=== PATIENT | male | born 1995 ===

== ENCOUNTER 2018-01-06 09:26 | Emergency (ER) | payer OTHER | END 2018-01-06 12:17 | LOC: H.ER 09:26 | DX: F32.2 Major depressive disorder, single episode, severe without psychotic features (principal) ==

== ENCOUNTER 2018-01-06 09:26 | Inpatient (IN) | payer OTHER ==
[2018-01-06 10:05] LABS: BASO # 0.1 K/uL (0.0-0.2); BASO % 0.8 % (0.0-2.0); EOS % 0.3 % (0.0-4.0); HEMOGLOBIN 15.3 g/dL (12.0-18.0); LYMPH # 1.5 K/uL (1.0-4.3); LYMPH % 22.4 % (20.0-40.0); MEAN CELL VOLUME 91.7 fl (80.0-94.0); MEAN CORPUSCULAR HEMOGLOBIN 31.7 pg (27.0-31.0); MEAN CORPUSCULAR HGB CONC 34.5 g/dL (33.0-37.0); MONO # 0.6 K/uL (0.0-0.8); NEUT # 4.5 K/uL (1.8-7.0); NEUT % 67.5 % (50.0-75.0); NRBC % 0.2 % (0.0-0.0); RBC 4.84 Mil/uL (4.40-5.90); RED CELL DISTRIBUTION WIDTH 13.5 % (11.5-14.5); WHITE BLOOD COUNT 6.6 K/uL (4.8-10.8)
--- NOTE | 2018-01-06 10:18 | ED PDOC ---
HPI: Psych/Substance Abuse Time Seen by Provider: 01/06/18 09:32 Chief Complaint (Nursing): Psychiatric Evaluation Chief Complaint (Provider): Psychiatric Evaluation History Per: Patient History/Exam Limitations: no limitations Onset/Duration Of Symptoms: Hrs Current Symptoms Are (Timing): Still Present Suicide/Self Injury Attempted (Context): Cut Wrists (and neck ) Modifying Factor(s): Alcohol, Marijuana, Cocaine Additional Complaint(s): 22 year old male brought to the ED complaining of depression, onset last night. Patient states he was drinking alcohol, using cocaine and marijuana when he stated feeling sad and depressed last night. Patient stated making superficial cuts to his bilateral forearms and neck. 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 pt is utd with tetanus. PMD: None Provided Past Medical History Reviewed: Historical Data, Nursing Documentation, Vital Signs - Medical History PMH: No Chronic Diseases - Surgical History Surgical History: No Surg Hx - Family History Family History: States: Unknown Family Hx - Social History Current smoker - smoking cessation education provided: No Alcohol: Social Drugs: Cannabis, Cocaine - Immunization History Hx Tetanus Toxoid Vaccination: Yes - Home Medications Home Medications: Ambulatory Orders Medication Instructions Recorded No Known Home Med 01/06/18 - Allergies Allergies/Adverse Reactions: Allergies Allergy/AdvReac Type Severity Reaction Status Date / Time No Known Allergies Allergy Verified 01/06/18 09:36 Review of Systems ROS Statement: Except As Marked, All Systems Reviewed And Found Negative Skin: Positive for: Other (cuts to forearms and neck) Psych: Positive for: Depression, Suicidal ideation Physical Exam - Reviewed Nursing Documentation Reviewed: Yes Vital Signs Reviewed: Yes - Physical Exam Appears: Positive for: Non-toxic, No Acute Distress Head Exam: Positive for: ATRAUMATIC, NORMOCEPHALIC Skin: Positive for: Warm, Dry Eye Exam: Positive for: Normal appearance ENT: Positive for: Normal ENT Inspection Neck: Positive for: Normal (superficial grazes on neck; not open, not bleeding, no hematoma), Supple Cardiovascular/Chest: Positive for: Regular Rate, Rhythm Respiratory: Positive for: Normal Breath Sounds Gastrointestinal/Abdominal: Positive for: Normal Exam, Soft Back: Positive for: Normal Inspection Extremity: Positive for: Normal ROM, Other (superficial lacerations to bilateral forearms, with exception of one laceration on the R forearm, the wound is still pretty superficial but skin is gaping and needs closure. area irrigated with sterile water prior to procedure. (see procedure note) time out performed as well. neurovascular intact post procedure. ) Neurologic/Psych: Positive for: Alert, hydrotreater operator II-XII (intact), Oriented (x3) - Laboratory Results Result Diagrams: 01/06/18 09:52 01/06/18 09:52 Medical Decision Making Medical Decision Making: Time: 951 Plan: Depression, alcohol ingestion rule out electrolyte abnormalities -- EKG -- Acetaminophen -- Alcohol Serum -- BMP -- Urine Drug Screen -- Salicylate -- Crisis Evaluation -- CBC with differentials -- Nursing Communication -- Urinalysis Time: 1223 pt cleared for psych evaluation. -- Dr. Gutierrez would like to admit patient for depression. Scribe Attestation: Documented by Keyla Cortez, acting as a scribe for Dr. Kirstie Lamb MD Provider Scribe Attestation: All medical record entries made by the Scribe were at my direction and personally dictated by me. I have reviewed the chart and agree that the record accurately reflects my personal performance of the history, physical exam, medical decision making, and the department course for this patient. I have also personally directed, reviewed, and agree with the discharge instructions and disposition. Procedures - Laceration/Wound Repair Right Lateral Arm Wound Length (cm): 2.54 Wound's Depth, Shape: linear Wound Explored: No active bleeding; slight oozing blood; gaped open Irrigated w/ Saline (ccs): 3 (throughouly irrigated and cleaned ) Anesthesia: 1% Lidocaine (3 ml) Suture Size/Type: 3:0, nylon Number of Sutures: 3 Wound Complexity: Simple Sterile Dressing Applied?: Yes Splint Applied?: No Disposition - Clinical Impression Clinical Impression: Depression, Laceration - Patient ED Disposition Is Patient to be Admitted: Yes Counseled Patient/Family Regarding: Diagnosis - Disposition Disposition Time: 11:00 Condition: STABLE
[2018-01-06 10:19] LABS: BLOOD UREA NITROGEN 10 mg/dl (9-20); CALCIUM 8.9 mg/dL (8.4-10.2); GFR AFRICAN-AMERICAN > 60; GFR NON-AFRICAN AMERICAN > 60
[2018-01-06 10:20] LABS: ACETAMINOPHEN < 10.0 ug/ml (10.0-30.0); SALICYLATE < 1.0 mg/dl
[2018-01-06] MEDS ORDERED: Lidocaine 1% Inj (20ml) ONE (10:21)
[2018-01-06 10:30] LABS: URINE BILIRUBIN NEGATIVE (NEGATIVE); URINE BLOOD NEGATIVE (NEGATIVE); URINE CLARITY CLEAR (Clear); URINE COLOR YELLOW (YELLOW); URINE GLUCOSE (UA) NEG (Normal); URINE LEUKOCYTE ESTERASE NEG Leu/uL (Negative); URINE PROTEIN NEGATIVE (NEGATIVE); URINE UROBILINOGEN 0.2-1.0 mg/dL (0.2-1.0)
[2018-01-06 10:47] LABS: BARBITURATES, UR NEGATIVE (NEGATIVE); BENZODIAZEPINES, UR NEGATIVE (NEGATIVE); OPIATES, UR NEGATIVE (NEGATIVE); PHENCYCLIDINE, UR NEGATIVE (NEGATIVE)
[2018-01-06 13:30] VITALS: O2SAT 100
[2018-01-06] MEDS ORDERED: Lidocaine 1% Inj (20ml) IJ ONE (14:04)
[2018-01-06] MEDS ORDERED: Magnesium Hydroxide Susp 30 ml UD PO PRN (14:51)
[2018-01-06] MEDS ORDERED: DiphenhydrAMINE 50 mg/ml Inj IM PRN (14:51)
[2018-01-06] MEDS ORDERED: Alum-Mag Hydrox-Simethicone Susp (30 mL) PO PRN (14:51)
--- NOTE | 2018-01-06 15:11 | PCM.BM ---
Treatment Plan Problems - Problems identified on initial assessmt Problem 1 Date Initiated: 01/06/18 Assessment reference: NA Status: Active Hopelessness/Helplessness Assessment reference: NA Status: Active - Milieu Protocol Maintain good personal hygiene: daily Encourage regular showers, daily Remind patient to perform daily oral care, daily Assist patient to perform ADL's Conduct patient checks and document Observation sheet: Q15 minutes Maintain personal safety: every shift Educate patient to report safety concerns to staff, every shift Monitor environment for contraband/sharps Medication safety: Monitor for expected outcome, potential side effects: every shift, Assess barriers to learning: every shift, Assess readiness for medication education: every shift
[2018-01-07 07:00] LABS: T4 4.51 ug/dl (5.5-11.0)
--- NOTE | 2018-01-07 08:43 | CARD ---
APPROVED REPORT EKG Measurement Heart [id number] <Conclusion> Normal sinus rhythm Normal ECG
--- NOTE | 2018-01-07 12:36 | PCM.PSYCH ---
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, since he came back he has been feeling down and lonely also remorseful about breaking up with his girlfriend, who left him about 11 months ago after he cheated on her, pt reported that for the last two weeks, he started thinking that he has no purpose for living as he always ruins and looses everything good he has, pt went to bathroom , used pocket knife cutting both wrists and also cutting his neck superficially, pt stated that he has been contemplating suicide for a long time and that night he felt he could not handle the emotional pain and wanted to end it all pt reported has been depressed even in [facility] and contemplated suicide using a caryn but did not want to make a seen and hurt his family pt reported poor sleep with early insomnia, decreased appetite low energy, episodes of impulsivety , anger denied psychotic symptoms, episodes of binging on alcohol , denied other substance use , denied any current psychotic symptoms currently having passive suicidal ideation without active plan on the unit , denied perceptual disturbances Current Medications: Active Medications Generic Name Dose Route Start Last Admin Trade Name Freq PRN Reason Stop Dose Admin Acetaminophen 650 mg 01/06/18 14:56 Tylenol 325mg Tab PO Q4 PRN Pain, moderate (4-7) Al Hydrox/Mg Hydrox/Simethicone 30 ml 01/06/18 14:51 Maalox Plus 30 Ml PO Q4 PRN Dyspepsia Aripiprazole 5 mg 01/07/18 12:15 Abilify PO DAILY ZENAIDA Diphenhydramine HCl 50 mg 01/06/18 14:51 Benadryl IM Q6 PRN Extrapyramidal S/S Unable PO Haloperidol 5 mg 01/06/18 14:51 Haldol PO Q4 PRN Agitation Haloperidol Lactate 5 mg 01/06/18 14:51 Haldol IM Q4 PRN Agitation, Unable to Take PO Lorazepam 2 mg 01/06/18 14:51 Ativan IM Q4 PRN Anxiety/Agitation,Unable PO Lorazepam 2 mg 01/06/18 14:54 Ativan PO Q4 PRN Agitation Lorazepam 1 mg 01/06/18 17:00 01/07/18 09:25 Ativan PO 1 mg TID ZENAIDA Administration Magnesium Hydroxide 30 ml 01/06/18 14:51 Milk Of Magnesia PO HS PRN Constipation Trazodone HCl 50 mg 01/06/18 14:58 Desyrel PO HS PRN Insomnia Past Psychiatric History - Past Psychiatric History Explanation of prior treatment: pt reported depression and anxiety since childhood due to witnessing parental conflicts , and parents divorce received counselling during high school years for oppositional defiant behavior reported episodes of impulsivity alternating with depression and anhedonia History of ETOH/Drug Use: alcohol abuse since age 16, binging pattern Pertinent Medical Hx (Current Medical&Sleep Prob, Allergies): Allergies Allergy/AdvReac Type Severity Reaction Status Date / Time No Known Allergies Allergy Verified 01/06/18 09:36 No Known Home Med 01/06/18 Mental Status Examination - Personal Presentation Personal Presentation: Looks younger than stated age - Affect Affect: Constricted, Depressed - Reliability in Providing Information Reliability in Providing Information: Fair - Speech Speech: Relevant - Mood Mood: Depressed, Anxious - Formal Thought Process Formal Thought Process: Circumstantial - Hallucinations/Delusions Additional comments: pt denied perceptual disturbances, non elicited - Obsessions/Compulsions Obsessions: No Compulsions: No - Cognitive Functions Orientation: Person, Place Sensorium: Alert Attention/Concentration: Attentive - Risk Risk: Suicidal, Withdrawal, Diminished functioning - Strength & Assets Inventory Strength & Assets Inventory: Family support, Employment history - Limitations Additional comments: recent break up with girl friend DSM 5 DX - DSM 5 DSM 5 Diagnosis: major depression severe without psychotic features rule out bipolar II disorder depressed alcohol use disorder - Recommended/Plan of Treatment Treatment Recommendations and Plan of Treatment: ativan 1mg tid/ monitor pt for symptoms and signs of alcohol withdrawal abilify 5mg day for depression and poor impulse control monitor pt for psychopharmacological effects and side effect profile CBT group and supportive therapy Prognosis: guarded
[2018-01-07] MEDS ORDERED: Bacitracin Opht OINT 3.5GM OD SCH (17:00)
--- NOTE | 2018-01-07 17:56 | CP.PCM.CON ---
<CarmelotrungJaylon martines - Last Filed: 01/07/18 17:56> Past Patient History - Past Social History Alcohol: Social Drugs: Cannabis, Cocaine - CARDIAC Hx Cardiac Disorders: No - PULMONARY Hx Respiratory Disorders: No - NEUROLOGICAL Hx Neurological Disorder: No - HEENT Hx HEENT Problems: No - RENAL Hx Chronic Kidney Disease: No - ENDOCRINE/METABOLIC Hx Endocrine Disorders: No - HEMATOLOGICAL/ONCOLOGICAL Hx Blood Disorders: No - INTEGUMENTARY Hx Dermatological Problems: No - MUSCULOSKELETAL/RHEUMATOLOGICAL Hx Musculoskeletal Disorders: No - GASTROINTESTINAL Hx Gastrointestinal Disorders: No - GENITOURINARY/GYNECOLOGICAL Hx Genitourinary Disorders: No - PSYCHIATRIC Hx Physical Abuse: No Hx Sexual Abuse: No Hx Substance Use: Yes (has used drugs in the past, no drugs for last 2 months) - SURGICAL HISTORY Hx Surgeries: No - ANESTHESIA Hx Anesthesia: No Meds Allergies/Adverse Reactions: Allergies Allergy/AdvReac Type Severity Reaction Status Date / Time No Known Allergies Allergy Verified 01/06/18 09:36 - Medications Medications: Current Medications Acetaminophen (Tylenol 325mg Tab) 650 mg PO Q4 PRN PRN Reason: Pain, moderate (4-7) Al Hydrox/Mg Hydrox/Simethicone (Maalox Plus 30 Ml) 30 ml PO Q4 PRN PRN Reason: Dyspepsia Aripiprazole (Abilify) 5 mg PO DAILY [facility] Last Admin: 01/07/18 15:03 Dose: 5 mg Bacitracin (Bacitracin Opht Oint) 1 applic OD Q4 [facility] Diphenhydramine HCl (Benadryl) 50 mg IM Q6 PRN PRN Reason: Extrapyramidal S/S Unable PO Haloperidol (Haldol) 5 mg PO Q4 PRN PRN Reason: Agitation Haloperidol Lactate (Haldol) 5 mg IM Q4 PRN PRN Reason: Agitation, Unable to Take PO Lorazepam (Ativan) 2 mg IM Q4 PRN PRN Reason: Anxiety/Agitation,Unable PO Lorazepam (Ativan) 2 mg PO Q4 PRN PRN Reason: Agitation Lorazepam (Ativan) 1 mg PO TID [facility] Last Admin: 01/07/18 15:03 Dose: 1 mg Magnesium Hydroxide (Milk Of Magnesia) 30 ml PO HS PRN PRN Reason: Constipation Trazodone HCl (Desyrel) 50 mg PO HS PRN PRN Reason: Insomnia Results - Vital Signs Recent Vital Signs: Last Vital Signs Temp 98.1 F 01/06/18 17:22 Pulse 72 01/06/18 22:00 Resp 17 01/06/18 17:22 BP 154/75 H 01/06/18 22:00 Pulse Ox 100 01/06/18 13:29 - Labs Result Diagrams: 01/06/18 09:52 01/06/18 09:52 Labs: Laboratory Results - last 24 hr 01/07/18 01/07/18 05:45 05:45 Hemoglobin A1c 5.3 Triglycerides 76 Cholesterol 120 LDL Cholesterol Direct 59 HDL Cholesterol 41 Thyroxine (T4) 4.51 L TSH 3rd Generation 0.76 <Vaibhav Hayes - Last Filed: 01/07/18 20:33> History of Present Illness - History of Present Illness History of Present Illness: 22 y/o male with no PMH brought to ER by his sister for crisis evaluation . 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 He states that was drinking yesterday and suddenly felt sad , depressed and decided to cut his wrists , neck and abdomen with a pocket knife ( all shallow cuts ). Patient denies any prior history of depression or suicidal attempts. admits to passive suicidal thoughts in the past. At present feeling well, denies any suicidal ideation. Denies any chest pain SOB, palpitations, PND , orthopnea , urinary symptoms or changes in bowel movements. Complains of bilateral inguinal area rash . Allergies ; NKDA PMH ; None Medications : none surgery ; None family history ; Not contributory Social history ; lives with mother in [place] , smokes less 1 cig / day , ETOH abuse weekly 4 large heavy liquor, denies drug abuse but has tried LSD, marijuana, cocaine, active , just returned from 4 month active duty in [facility] ROS ; 14 point review of system negative except above Review of Systems - Review of Systems All systems: reviewed and no additional remarkable complaints except Past Patient History - Infectious Disease Hx of Infectious Diseases: None - Tetanus Immunizations Tetanus Immunization: Up to Date - Past Medical History & Family History Past Medical History?: No Past Family History: Reviewed and not pertinent - Past Social History Smoking Status: Current Some Days Smoker Chewing Tobacco Use: No Cigar Use: No Alcohol: < 2 Drinks/Day Drugs: Cannabis, Cocaine Meds - Medications Medications: Current Medications Acetaminophen (Tylenol 325mg Tab) 650 mg PO Q4 PRN PRN Reason: Pain, moderate (4-7) Al Hydrox/Mg Hydrox/Simethicone (Maalox Plus 30 Ml) 30 ml PO Q4 PRN PRN Reason: Dyspepsia Aripiprazole (Abilify) 5 mg PO DAILY [facility] Last Admin: 01/07/18 15:03 Dose: 5 mg Bacitracin (Bacitracin Opht Oint) 1 applic OD Q4 [facility] Diphenhydramine HCl (Benadryl) 50 mg IM Q6 PRN PRN Reason: Extrapyramidal S/S Unable PO Haloperidol (Haldol) 5 mg PO Q4 PRN PRN Reason: Agitation Haloperidol Lactate (Haldol) 5 mg IM Q4 PRN PRN Reason: Agitation, Unable to Take PO Lorazepam (Ativan) 2 mg IM Q4 PRN PRN Reason: Anxiety/Agitation,Unable PO Lorazepam (Ativan) 2 mg PO Q4 PRN PRN Reason: Agitation Lorazepam (Ativan) 1 mg PO TID [facility] Last Admin: 01/07/18 19:15 Dose: 1 mg Magnesium Hydroxide (Milk Of Magnesia) 30 ml PO HS PRN PRN Reason: Constipation Trazodone HCl (Desyrel) 50 mg PO HS PRN PRN Reason: Insomnia Physical Exam - Constitutional Appears: Non-toxic, No Acute Distress - Head Exam Head Exam: ATRAUMATIC, NORMAL INSPECTION, NORMOCEPHALIC - Eye Exam Eye Exam: EOMI, Normal appearance, PERRL Pupil Exam: NORMAL ACCOMODATION - ENT Exam ENT Exam: Mucous Membranes Moist, Normal Exam - Neck Exam Neck exam: Positive for: Full Rom, Normal Inspection - Respiratory Exam Respiratory Exam: Clear to Auscultation Bilateral, NORMAL BREATHING PATTERN. absent: Rales, Rhonchi, Wheezes - Cardiovascular Exam Cardiovascular Exam: REGULAR RHYTHM, RRR, +S1, +S2. absent: JVD - GI/Abdominal Exam GI & Abdominal Exam: Normal Bowel Sounds, Soft. absent: Tenderness - Rectal Exam Rectal Exam: Deferred - Extremities Exam Extremities exam: Positive for: normal capillary refill, normal inspection, pedal pulses present. Negative for: calf tenderness, pedal edema - Back Exam Back exam: NORMAL INSPECTION - Neurological Exam Neurological exam: Alert, CN II-XII Intact, Oriented x3, Reflexes Normal - Psychiatric Exam Psychiatric exam: Normal Affect - Skin Skin Exam: Dry, Normal Color, Warm Additional comments: multiple shallow cuts to bilateral wrists , right side of the neck and 2 small cuts to left lower abdomen bilateral inguinal area rash Results - Vital Signs Recent Vital Signs: Last Vital Signs Temp 98.1 F 01/06/18 17:22 Pulse 72 01/06/18 22:00 Resp 17 01/06/18 17:22 BP 154/75 H 01/06/18 22:00 Pulse Ox 100 01/06/18 13:29 - Labs Result Diagrams: 01/06/18 09:52 01/06/18 09:52 Labs: Laboratory Results - last 24 hr 01/07/18 01/07/18 01/07/18 05:45 05:45 05:45 Hemoglobin A1c 5.3 Triglycerides 76 Cholesterol 120 LDL Cholesterol Direct 59 HDL Cholesterol 41 Thyroxine (T4) 4.51 L TSH 3rd Generation 0.76 RPR Nonreactive Assessment & Plan - Assessment and Plan (Free Text) Assessment: 22 y/o male with no PMH brought to ER by his sister for crisis evaluation . Patient has just recently returned home after being deployed for 4 months in [place] . He states that was drinking yesterday and suddenly felt sad , depressed and decided to cut his wrists , neck and abdomen with a pocket knife ( all shallow cuts ). Patient denies any prior history of depression or suicidal attempts. admits to passive suicidal thoughts in the past. At present feeling well, denies any suicidal ideation. Denies any chest pain SOB, palpitations, PND , orthopnea , urinary symptoms or changes in bowel movements. Complains of bilateral inguinal area rash . 1. Depression management as per psych 2.Polysubstance abuse including ETOH psychotherapy management of depression 3. Tinea cruris start clotrimazole topical
[2018-01-08] MEDS: Bacitracin OINT 15GM TOP SCH ×2 (09:49→18:36)
--- NOTE | 2018-01-08 15:28 | PCM.PYCHPN ---
Psychiatric Progress Note - Psychiatric Progress Note Patient seen today, length of contact: pt evaluated discussed with team chart reviewed Patient Chief Complaint: I have been depressed for a long time Problems Identified/Issues Discussed: pt seen with treatment team, presenting with depressed mood and affect, low energy and low motivation, reported multiple incidences in the past he considered ending his life but this time he intended to commit suicide as he felt he has no hope in the future CBT provided ,discussing negative automatic thoughts and possible alternatives discussed with pt need to comply with therapy and medications on discharge discussed gradually increasing abilify , pt denied active suicidal plan on the unit denied homicidal ideations Medical Problems: pt reported depression and anxiety since childhood due to witnessing parental conflicts , and parents divorce received counselling during high school years for oppositional defiant behavior reported episodes of impulsivity alternating with depression and anhedonia DSM 5 Symptoms Update: major depression rule out bipolar disorder depressed alcohol use disorder Medication Change: Yes (increase abilify) Medical Record Reviewed: Yes Mental Status Examination - Cognitive Function Orientation: Person, Place Attention: WNL Concentration: WNL Association: WNL Fund of Knowledge: WNL Decription of patient's judgement and insights: partial insight poor impulse control - Mood Mood: Depressed, Anxious - Affect Affect: Constricted, Depressed - Speech Speech: Soft - Formal Thought Process Formal Thought Process: Circumstantial Psychotic Thoughts and Behaviors: pt denied perceptual disturbances, non elicited - Suicidal Ideation Suicidal Ideation: No - Homicidal Ideation Homicidal Ideation: No Goal/Treatment Plan - Goal/Treatment Plan Need for Continued Stay: Remain at risks for inpatient hospitalization, Severe depression anxiety, Discharge may exacerbated symptoms Progress Toward Problem(s) and Goals/Treatment Plan: increase abilify gradually for depression and poor impulse control monitor pt for psychopharmacological effects and side effect profile CBT group and supportive therapy
[2018-01-09] MEDS: Bacitracin OINT 15GM TOP SCH ×3 (11:57→17:09)
--- NOTE | 2018-01-09 16:16 | PCM.PYCHPN ---
Psychiatric Progress Note - Psychiatric Progress Note Patient seen today, length of contact: pt evaluated discussed with team chart reviewed Patient Chief Complaint: I think my parents' seperation was the hardest thing on me Problems Identified/Issues Discussed: pt on evaluation, less guarded, able to open up in refernce to his feelings , stated remembering being depressed and anxious since his parents' separation , always feeling remorseful for not having an intact family and that makes him always clark into relations, pt also reported his tendency to loose his temper and frequent episodes of irritability and impulsive behavior discussed with pt importance of being in therapy on discharge, also discussed gradual increase in dose of abilify, no reported current side effects Medical Problems: pt reported depression and anxiety since childhood due to witnessing parental conflicts , and parents divorce received counselling during high school years for oppositional defiant behavior reported episodes of impulsivity alternating with depression and anhedonia DSM 5 Symptoms Update: depression/ rule out bipolar II depressed Medication Change: Yes (increase abilify) Medical Record Reviewed: Yes Mental Status Examination - Cognitive Function Orientation: Person, Place Attention: WNL Concentration: WNL Association: WN Fund of Knowledge: WN Decription of patient's judgement and insights: partial insight poor impulse control - Mood Mood: Depressed, Anxious - Affect Affect: Constricted, Depressed - Speech Speech: Soft - Formal Thought Process Formal Thought Process: Circumstantial Psychotic Thoughts and Behaviors: pt denied perceptual disturbances, non elicited - Suicidal Ideation Suicidal Ideation: No - Homicidal Ideation Homicidal Ideation: No Goal/Treatment Plan - Goal/Treatment Plan Need for Continued Stay: Remain at risks for inpatient hospitalization, Severe depression anxiety, Discharge may exacerbated symptoms Progress Toward Problem(s) and Goals/Treatment Plan: increase abilify gradually for depression and poor impulse control monitor pt for psychopharmacological effects and side effect profile CBT group and supportive therapy
[2018-01-10] MEDS: Bacitracin OINT 15GM TOP SCH ×2 (09:24→17:45)
--- NOTE | 2018-01-10 13:03 | PCM.PYCHPN ---
Psychiatric Progress Note - Psychiatric Progress Note Patient seen today, length of contact: pt evaluated discussed with team chart reviewed Patient Chief Complaint: I am now trying to think what got me into this situation Problems Identified/Issues Discussed: pt on evaluation, cooperative , more interactive with staff and other patients, attending groups, pt able to verbalize some of the stressors that led to his current suicidal attempt, discussed with pt possible coping skills, need to continue with outpatient therapy , pt reported feeling calmer with abilify , no current reported side effects, discussed with pt the current diagnosis with possibility of Bipolar II versus depression, will continue with abilify 5mg daily pt denied any current suicidal or homicidal ideation Medical Problems: pt reported depression and anxiety since childhood due to witnessing parental conflicts , and parents divorce received counselling during high school years for oppositional defiant behavior reported episodes of impulsivity alternating with depression and anhedonia DSM 5 Symptoms Update: depression rule out bipolar II disorder Medication Change: No Medical Record Reviewed: Yes Mental Status Examination - Cognitive Function Orientation: Person, Place Attention: WNL Concentration: WNL Association: WNL Fund of Knowledge: WNL Decription of patient's judgement and insights: partial insight poor impulse control - Mood Mood: Depressed, Anxious - Affect Affect: Constricted, Depressed - Speech Speech: Soft - Formal Thought Process Formal Thought Process: Circumstantial Psychotic Thoughts and Behaviors: pt denied perceptual disturbances, non elicited - Suicidal Ideation Suicidal Ideation: No - Homicidal Ideation Homicidal Ideation: No Goal/Treatment Plan - Goal/Treatment Plan Need for Continued Stay: Remain at risks for inpatient hospitalization, Severe depression anxiety, Discharge may exacerbated symptoms Progress Toward Problem(s) and Goals/Treatment Plan: abilify 5mg for depression and poor impulse control monitor pt for psychopharmacological effects and side effect profile CBT group and supportive therapy
--- NOTE | 2018-01-11 09:00 | PCM.PYCHPN ---
Psychiatric Progress Note - Psychiatric Progress Note Patient seen today, length of contact: pt evaluated discussed with team chart reviewed Patient Chief Complaint: pt has remained very depressed still missing the girlfriend .pt is less impulsive with abilify and denies suicidal ideation. Medication Change: No Medical Record Reviewed: Yes Mental Status Examination - Cognitive Function Orientation: Person, Place Attention: WNL Concentration: WNL Association: WNL Fund of Knowledge: WNL - Mood Mood: Depressed, Anxious - Affect Affect: Constricted, Depressed - Speech Speech: Soft - Formal Thought Process Formal Thought Process: Circumstantial - Suicidal Ideation Suicidal Ideation: No - Homicidal Ideation Homicidal Ideation: No Goal/Treatment Plan - Goal/Treatment Plan Need for Continued Stay: Remain at risks for inpatient hospitalization, Severe depression anxiety, Discharge may exacerbated symptoms Progress Toward Problem(s) and Goals/Treatment Plan: will add zoloft 25 mg daily for depression and continue to titrate abilify as needed to stabilize the mood . D/c plans as per dr larkin
[2018-01-11] MEDS: Bacitracin OINT 15GM TOP SCH ×2 (09:27→19:08)
[2018-01-11 16:19] VITALS: RESP 18
[2018-01-12] MEDS: Bacitracin OINT 15GM TOP SCH ×2 (09:19→16:54)
[2018-01-12 16:53] VITALS: PULSE 73
[2018-01-13 09:09] VITALS: BP 127/59; TEMP 97.3
[2018-01-13] MEDS: Bacitracin OINT 15GM TOP SCH (09:14)
--- NOTE | 2018-01-13 12:57 | PCM.PYCHDC ---
Mental Status Examination - Mental Status Examination Orientation: Person, Place, Situation, Time Memory: Intact Mood: Neutral Affect: Broad Speech: Appropriate Attention: WNL Concentration: WNL Association: WNL Fund of Knowledge: WNL Formal Thought Process: No Impairment Description of patient's judgement and insight: partial insight poor impulse control Psychotic Thoughts and Behaviors: pt denied perceptual disturbances, non elicited Suicidal Ideation: No Current Homicidal Ideation?: No Discharge Summary - Discharge Note Reason for Hospitalization: pt is 22 ys old male , no previous formal psychiatric treatment, brought to the ER by sister after a suicidal attempt by cutting his wrist while intoxicated reportedly patient has been back from [facility] 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, since he came back he has been feeling down and lonely also remorseful about breaking up with his girlfriend, who left him about 11 months ago after he cheated on her, pt reported that for the last two weeks, he started thinking that he has no purpose for living as he always ruins and looses everything good he has, pt went to bathroom , used pocket knife cutting both wrists and also cutting his neck superficially, pt stated that he has been contemplating suicide for a long time and that night he felt he could not handle the emotional pain and wanted to end it all pt reported has been [facility] and contemplated suicide using a caryn but did not want to make a seen and hurt his family pt reported poor sleep with early insomnia, decreased appetite low energy, episodes of impulsivety , anger denied psychotic symptoms, episodes of binging on alcohol , denied other substance use , denied any current psychotic symptoms currently having passive suicidal ideation without active plan on the unit , denied perceptual disturbances Consultations:: List each consultation separately and include: 1. Reason for request. 2. Findings. 3. Follow-up Summary of Hospital Course include:: 1. Description of specific treatment plan utilized for patients during their course of treatmen. 2. Summarize the time- course for resolution of acute symptoms and/or regressed behaviors. 3. Describe issues identified and worked on during hospitalization. 4. Describe medication utilized. 5. Describe medical problems identified and treated. 6. Reassessment of suicide risk Summary of Hospital Course: pt on admission was started on abilify 2mg, it was utitrated to 5mg for depression and poor impulse control, zoloft 25mg for depression CBT and group therapy provided pt was also provided for motivational therapy for alcohol use pt was compliant with treatment attended groups, presented with brighter mood and affect, no reported side effects of the medications on discharge mental status was stable, pt denied any current suicidal or homicidal ideation , denied perceptual disturbances follow up was arranged by social worker clinical at [place] outpatient - Final Diagnosis (DSM 5) Condition upon Discharge: STABLE DSM 5: major depression single episode rule out Bipolar II depressed alcohol abuse Disposition: HOME/ ROUTINE Follow-up Treatment Plan: abilify 5mg for depression and poor impulse control monitor pt for psychopharmacological effects and side effect profile CBT group and supportive therapy Prescriptions/Medication Reconciliation: ARIPiprazole [Abilify] 5 mg PO DAILY 30 Days #30 tab Bacitracin OINT 1 applic TOP BID 7 Days #1 tube Clotrimazole 1% Cream [Lotrimin 1% CREAM] 1 applic TOP BID 7 Days #1 tube Sertraline [Zoloft] 25 mg PO DAILY 30 Days #30 tab traZODone [Desyrel] 50 mg PO HS PRN 30 Days #30 tab PRN Reason: Insomnia - Antipsychotic Medications Pt discharged on 2 or more routine antipsychotic medications: No
== END 2018-01-13 12:31 | disposition home or self-care (01) | DRG 885 ==
LOC: H.ER 09:26 → H.ERHOLD 12:18 → H.PSYCH 14:43
PROVIDERS: ADMIT Psychiatry & Neurology Psychiatry; ATTEND Psychiatry & Neurology Psychiatry
PROC: GZHZZZZ Group Psychotherapy (ICD-10-PCS; principal; 2018-01-07)
PROC: GZ51ZZZ Individual Psychotherapy, Behavioral (ICD-10-PCS; 2018-01-07)
DX: F32.2 Major depressive disorder, single episode, severe without psychotic features (principal); F41.9 Anxiety disorder, unspecified; F91.3 Oppositional defiant disorder; S61.511A Laceration without foreign body of right wrist, initial encounter; S61.512A Laceration without foreign body of left wrist, initial encounter; X78.9XXA Intentional self-harm by unspecified sharp object, initial encounter; F17.200 Nicotine dependence, unspecified, uncomplicated; R21 Rash and other nonspecific skin eruption; B35.6 Tinea cruris; F10.10 Alcohol abuse, uncomplicated; F12.10 Cannabis abuse, uncomplicated; F14.10 Cocaine abuse, uncomplicated